=== PATIENT | female | born 1970 | race Caucasian/White ===

== ENCOUNTER 2023-01-25 16:58 | Outpatient (CLI) | payer OTHER, MEDICAID, SELFPAY ==
--- OUTSIDE RECORDS SUMMARY | 2023-02-07 19:03 | XMS_ITS | Continuity of Care Document ---
Author Name Unknown Organization [facility] Address [address] [address] [place] [address] Phone Care Team Providers Care Brush Holder Inspector Name Role Phone Blaise Farias CRNA Unavailable Unavailable Allergies, Adverse Reactions, Alerts Substance Reaction Status Criticality No Known Allergies Active No Inform ation Medications Medication Instructions Dosage Effective Dates (start - stop) Status Comments gabapentin 300 mg capsule take 1 capsule by oral route 3 times every day 300 MG - Active Procedures Procedure Date Colonoscopy Flex; Dx (sep Pro) 20 Advance Directives Directive Yes / No Effective Date File Name No Information Encounters Encounter Description Practice Location Reason(s) For Visit Diagnoses Date Provider Providers Copied on Encounter [facility], [address] [address], [place], [id number], [place] tel:[phone] [facility] No Information 0 Jarrett Welsh. [address], [place], [place], [id number] , [place]. [phone] Referring Provider: Valentín Peralta MD, [address], [place], [address] . tel:[phone] [facility], [address] [address], [place], [id number], [place] tel:[phone] [facility] Screening ColonoscopyEncounte r for screening for malignant neoplasm of colon 0 Fabian Laura. [address], [place] [facility] [place], [id number] , [place]. tel:[phone] Referring Provider: Garrison Bello MD, [address], [place], [address]. tel:[phone] [facility], [address] [address], [place], [id number], [place] tel:[phone] [facility] No Information 0 Fabian Laura. [address], [address], [place], [place], [id number] , [place]. [phone] Family History Family Member Type Diagnosis Age At Onset No Information Immunizations Vaccine Date Status Comments tetanus toxoid, reduced diphtheria toxoid, and acellular pertussis vaccine, adsorbed administered Note: [facility] bi-direct ional interface ; Source: Other Registry Payers Payer name Insurance type Covered democrat ID Authoriza tion(s) No Information Social History Type Description Quantity Date Captured Comments Sex Female Smoking Status No Information Chief Complaint And Reason For Visit No Information Reason For Referral Reason For Referral No Information History Of Present Illness Encounter Date Complaint History Of Prese nt Illness No Information Functional Status Date Functional Assessmen t No Information Instructions Date Instruction Additional Infor mation Colon Cancer Prevention Related to Screening Colonoscopy Assessments Type Assessment Date No Information Patient Care Teams Name Effective Dates (start - stop) Status Members No Information
== END 2023-01-25 16:59 | disposition home or self-care (01) ==
LOC: AMB 02-07 19:01
PROVIDERS: PCP Family Medicine; Visit Provider Emergency Medicine Emergency Medical Services
DX: S09.90XA Unspecified injury of head, initial encounter (principal); S19.9XXA Unspecified injury of neck, initial encounter; W20.8XXA Other cause of strike by thrown, projected or falling object, initial encounter; Y92.89 Other specified places as the place of occurrence of the external cause
CPT/HCPCS: A0425; A0427

== ENCOUNTER 2023-01-25 17:22 | Emergency (ER) | payer OTHER, MEDICAID, SELFPAY ==
[2023-01-25 17:27] VITALS: BP 111/75; PULSE 76; RESP 16; TEMP 36.6; O2SAT 97; BMI 25.6
--- NOTE | 2023-01-25 17:46 | CRLHL7_ITS ---
For Patients: As a result of the Century Cures Act, medical imaging exams and procedure reports are released immediately into your electronic medical record. You may view this report before your referring provider. If you have questions, please contact your health care provider. INDICATION: Neck pain. Trauma TECHNIQUE: Non-contrast axial CT of the cervical spine with coronal and sagittal reconstructions. No comparisons. FINDINGS: Image quality degraded due to patient motion. The overall stature and alignment of the cervical spine is within normal limits. Prevertebral soft tissues, cervical airway, dens and lateral masses are within normal limits. No evidence of bony fragments narrowing the central canal or visualized neural foramina. IMPRESSION: 1. Image quality degraded due to patient motion. 2. Grossly, no radiographic evidence of acute osseous injury. Dictated by Ej Cardoza MD @ 01/25/2023 7:17:52 PM Please note that all CT scans at this facility use dose modulation, iterative reconstruction, and/or weight-based dosing when appropriate to reduce radiation dose to as low as reasonably achievable. Dictated by: Ej Cardoza MD @ 01/25/2023 19:18:01 (Electronically Signed)
--- NOTE | 2023-01-25 17:46 | CRLHL7_ITS ---
For Patients: As a result of the Century Cures Act, medical imaging exams and procedure reports are released immediately into your electronic medical record. You may view this report before your referring provider. If you have questions, please contact your health care provider. INDICATION: Headache. Trauma. TECHNIQUE: Non-contrast CT of the head is submitted. No comparisons. FINDINGS: The ventricles, sulci and gyri are of normal size, shape and contour. Midline structures are centrally located. No convincing evidence of intra- or extra-axial fluid collections. IMPRESSION: 1. No radiographic evidence of acute intracranial abnormalities. Dictated by Ej Cardoza MD @ 01/25/2023 7:16:59 PM Please note that all CT scans at this facility use dose modulation, iterative reconstruction, and/or weight-based dosing when appropriate to reduce radiation dose to as low as reasonably achievable. Dictated by: Ej Cardoza MD @ 01/25/2023 19:17:12 (Electronically Signed)
--- NOTE | 2023-01-25 17:47 | ED.HEATRA ---
HPI - Head Injury General Chief complaint: Head Injury/Pain Stated complaint: Traumatic injury Time Seen by Provider: 01/25/23 17:37 History of Present Illness HPI Narrative: This 52-year-old female comes in from urgent care where she was sent here for further evaluation of head and neck injury. The patient states that she was at work and was on a large cart when she got hit in the head somehow. 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 She went to urgent care and received a neck caller and was sent here for further evaluation. She is now complaining about the neck caller and the discomfort it is causing. She does not report any midline pain. She does report a headache. She states that she did not have loss of consciousness. She did have some nausea and vomiting. She is not taking any anticoagulant medications. Prior to this she is in good health. Related Data Previous Rx's Medication Instructions Recorded ketorolac 10 mg tablet 10 mg PO Q8H 5 days #15 tabs 01/25/23 Allergies Allergy/AdvReac Type Severity Reaction Status Date / Time No Known Drug Allergies Allergy Verified 01/25/23 17:27 Review of Systems Status of ROS: Reports: 10 or more systems reviewed and unremarkable except as noted in History and below Narrative: Constitutional: No fevers, no weight gain or loss. Eyes: No discharge. No vision changes. HENT: No congestion, no sore throat, no ear pain. Cardiovascular: No chest pain, no palpitations. Respiratory: No shortness of breath, no wheezes, no cough. Gastrointestinal: No abdominal pain, no vomiting, no diarrhea. Genitourinary: No dysuria, no hematuria. Musculoskeletal: Normal range of motion. Skin: No rashes, no pruritis. Neurological: No dizziness, weakness, sensory change, speech change. Endo/Heme/Allergies: No bruising or bleeding. No polydipsia. Pysch: no suicidality, no anxiety, no insomnia. All other systems reviewed and are negative. PFSH PFSH Social History Smoking Status: Former smoker Do you use any of these nicotine containing products: None Second hand tobacco smoke exposure: No How often do you have a drink containing alcohol: never How often do you have six or more drinks on one occasion: Never AUDIT-C Alcohol total score: 0 Non-prescribed substance use: denies use service: No Exam Narrative: Exam Narrative: Constitutional: Well-developed, well-nourished, no acute distress. HEENT: Normocephalic, atraumatic. No sign of bruising or hematoma. No abrasion or laceration. Neck: Normal range of motion. Nontender. Supple. Heart: Regular. No murmurs. Normal rate. Intact distal pulses. Lungs: Clear to auscultation. No chest discomfort. No wheezes, rhonchi, or rales. Abdomen: Normal bowel sounds. Nontender. No rebound tenderness. Genitalia: Deferred. Back: No midline tenderness. Normal range of motion. Extremities: Normal range of motion. No injury. Skin: Intact. No rash. Warm. No erythema or pallor. Neurologic: No altered sensation. No weakness. Alert and oriented. Psychiatric: No suicidality. No anxiety or depression. No insomnia. Nursing notes and vitals signs are reviewed. Const: Vital Signs, click to edit/add: Vital Signs - 24 hr 01/25/23 17:27 01/25/23 18:28 Temperature 97.8 F Pulse Rate 80 Pulse Rate [Pulse Oximeter] 76 Respiratory Rate 16 Blood Pressure [Ri t Upper Arm] 111/75 Pulse Oximetry 97 98 Oxygen Delivery Me thod Room Air Course Vital Signs Vital signs: Initial Vital Signs Temperature 97.8 F 01/25/23 17:27 Temperature Source Temporal Artery Scan 01/25/23 17:27 Pulse Rate 76 01/25/23 17:27 Pulse Rhythm Regular 01/25/23 17:27 Respiratory Rate 16 01/25/23 17:27 Blood Pressure 111/75 01/25/23 17:27 Blood Pressure Mean 87 01/25/23 17:27 Blood Pressure Position Supine 01/25/23 17:27 Pulse Oximetry 97 01/25/23 17:27 Oxygen Delivery Method Room Air 01/25/23 17:27 Vital Signs Temperature 97.8 F 01/25/23 17:27 Pulse Rate 76 01/25/23 17:27 Respiratory Rate 16 01/25/23 17:27 Blood Pressure 111/75 01/25/23 17:27 Pulse Oximetry 97 01/25/23 17:27 Oxygen Delivery Method Room Air 01/25/23 17:27 Temperature 97.8 F 01/25/23 17:27 Pulse Rate 80 01/25/23 18:28 Respiratory Rate 16 01/25/23 17:27 Blood Pressure 111/75 01/25/23 17:27 Pulse Oximetry 98 01/25/23 18:28 Oxygen Delivery Method Room Air 01/25/23 17:27 MDM - Head Injury MDM Narrative Medical decision making narrative: This 52-year-old female had a injury at work where she hit her head but did not have loss of consciousness. Her exam is completely normal but she does complain of some headache and light sensitivity. She also has generalized aches and pains. CT imaging of the head and C-spine by my review with radiology report pending show no sign of abnormality. The patient's C-collar was removed after C-spine imaging was acquired. This patient is okay to return home. She did receive a prescription for Toradol. Discharge Plan Discharge Clinical Impression: Closed head injury Patient Disposition: Home, Self-Care Condition: Stable Additional Instructions: Take medication as needed and directed. Increase activity as tolerated. Follow up with MD or return if worsening. Prescriptions: New ketorolac 10 mg tablet 10 mg PO Q8H 5 Days Qty: 15 0RF Follow Up/Referrals: Armani Mcdaniel LAT, ATC, CSCS [Rope Silica Machine Operator Certified] - Stand Alone Forms: [employer] Info Instructions
[2023-01-25 18:28] VITALS: PULSE 80; O2SAT 98
== END 2023-01-25 20:10 | disposition home or self-care (01) ==
PROVIDERS: Emergency Provider Emergency Medicine Emergency Medical Services; PCP Family Medicine
DX: S09.90XA Unspecified injury of head, initial encounter (principal); W22.8XXA Striking against or struck by other objects, initial encounter
CPT/HCPCS: 70450; 72125; 99283; 99284